=== PATIENT | female | born 1980 | race African-American/Black ===

== ENCOUNTER 2017-01-05 20:02 | Emergency (ER) | payer OTHER ==
[~2017-01-05] VITALS: Ht 167.6 cm; Wt 88.0 kg
[~2017-01-05 20:02] MED LIST: DIFLUCAN150 MG PO; FLAGYL500 MG PO; KEFLEX500 MG PO; NORCO 5-325 TA1 EACH PO; PERCOCET 5-3251 EACH PO; PHENERGAN 25 MG25 M1 PO; ZPAK PO
[2017-01-05] MEDS ORDERED: NAPROSYN500 MG PO (20:33)
[2017-01-05] MEDS ORDERED: HYDROCHLOROTH12.5 M2 PO (20:48)
[2017-01-05 21:36] VITALS: BP 149/100
== END 2017-01-05 21:38 | disposition home or self-care (01) ==
LOC: ER 20:02
DX: R10.9 Unspecified abdominal pain (principal); M79.651 Pain in right thigh; E11.9 Type 2 diabetes mellitus without complications; F17.210 Nicotine dependence, cigarettes, uncomplicated; F10.99 Alcohol use, unspecified with unspecified alcohol-induced disorder; Z98.890 Other specified postprocedural states; V49.40XA Driver injured in collision with unspecified motor vehicles in traffic accident, initial encounter; Y93.89 Activity, other specified; Y92.89 Other specified places as the place of occurrence of the external cause; Y99.8 Other external cause status